=== PATIENT | male | born 1945 | race Caucasian/White ===

== ENCOUNTER → 2022-08-10 09:18 | Outpatient (BNVA) | payer OTHER, SELFPAY | PROVIDERS: PCP Internal Medicine; Visit Provider Urology | DX: N40.1 Benign prostatic hyperplasia with lower urinary tract symptoms (principal); R39.11 Hesitancy of micturition; R35.1 Nocturia | CPT/HCPCS: 51798; 99202 ==

== ENCOUNTER 2022-09-05 14:07 | Outpatient (REF) | payer OTHER, SELFPAY ==
--- NOTE | ~2022-09-05 | US_ITS ---
EXAMINATION: US PELVIS LIMITED (BLADDER) CLINICAL INFORMATION: Benign prostatic hyperplasia without lower urinary tract symptoms. COMPARISON: Renal ultrasound 12/26/2016. TECHNIQUE: Real-time imaging of the bladder. FINDINGS: BLADDER: Well distended and normal. Bilateral ureteral jets are demonstrated. Prevoid bladder volume is 440 mL. Postvoid bladder volume is 354 mL. ADDITIONAL FINDINGS: Prostate dimensions are 4.1 x 3.3 x 3.7 cm (volume 25.9 mL). Again, the prostate gland is lobulated and extends into the bladder base. US/US bladder IMPRESSION: There is a persistent increased postvoid residual volume. As well, a prostatic impression upon the bladder base is redemonstrated.
== END 2022-09-05 14:08 | disposition home or self-care (01) ==
LOC: HO.US 14:07
PROVIDERS: PCP General Practice; Visit Provider Urology
DX: N40.0 Benign prostatic hyperplasia without lower urinary tract symptoms (principal)
CPT/HCPCS: 76857

== ENCOUNTER → 2022-09-13 10:58 | Outpatient (BNVA) | payer OTHER, SELFPAY | PROVIDERS: PCP General Practice; Visit Provider Urology | DX: N40.1 Benign prostatic hyperplasia with lower urinary tract symptoms (principal); R39.11 Hesitancy of micturition; R35.1 Nocturia; N43.3 Hydrocele, unspecified | CPT/HCPCS: 52000; 99212 ==

== ENCOUNTER 2022-12-08 14:09 | Outpatient (AMB) | payer OTHER, SELFPAY ==
--- NOTE | 2022-12-08 14:10 | A.OFFVIS_ITS ---
Intake Intake Visit Reasons: H&P (greenlight 12/18) Intake Note: Patient is present for Telephone Follow Up h&p update Urology Med: None Antibiotic Allergy: Levoflaxcin Blood Thinner: none Pharmacy: [facility] Allergies atorvastatin Allergy (Mild, Verified 12/08/22 14:12) Unknown gabapentin Allergy (Mild, Verified 12/08/22 14:12) Unknown levofloxacin Allergy (Unknown, Verified 12/08/22 14:12) Unknown HPI HPI Comments History of Present Illness Details Lev is a pleasant male. He is a patient of Dr. Zavala. He seen for the following urologic conditions. - lower urinary tract symptoms - erectile dysfunction - hydrocele Bladder ultrasound incomplete emptying with 30 g prostate Office cystoscopy - enlarged median lobe, left hydrocele Discussed laser procedure on prostate and left hydrocelectomy Lower urinary tract symptoms Prior left hydrocele Longstanding symptoms of weakness of stream with hesitancy that have been progressive Current therapy with terazosin 5 mg and finasteride 5 mg Erectile dysfunction in setting of diabetes Longstanding Progressive Prior responsiveness to a sildenafil 100 mg [facility] Medical History BPH (benign prostatic hyperplasia) Diabetes mellitus, type II HTN (hypertension) PTSD (post-traumatic stress disorder) Review of Systems Const All systems reviewed & are unremarkable except as noted in HPI and below Reports no additional complaints Resp Reports no additional complaints GI Reports no additional complaints Reports as per HPI Musc Reports no additional complaints Physical Exam Telemedicine evaluation Appropriate responses Regular breathing rate and rhythm HEENT Head: Yes normal to inspection Ears: hearing grossly normal bilaterally Eyes General: appearance normal, both eyes and all related structures Neck Neck: Yes normal visual inspection Chest Chest palpation & inspection: normal inspection of the chest Resp Effort & Inspection: normal respiratory effort and able to speak in complete sentences Assessment & Plan Assessment & Plan (1) Hydrocele in adult: Code(s): N43.3 - Hydrocele, unspecified (2) BPH (benign prostatic hyperplasia): Code(s): N40.0 - Benign prostatic hyperplasia without lower urinary tract symptoms Plan Planned surgery upcoming GreenLight laser prostate Left hydrocelectomy Patient Instructions: Imaging studies, laboratory and physical exam results were discussed and reviewed in detail. No major barriers to patient understanding were identified. An opportunity to ask questions regarding the treatment plan was provided. All questions were answered. The patient expressed understanding and agreement with the above treatment plan. The patient is aware they should contact our office by phone for worsening of their current condition or the appearance of new urologic symptoms. Compliance is encouraged with any medications and followup testing that is ordered. It is a privilege to participate in the urologic care of your patient. If you have any questions or concerns regarding treatment for the above conditions, or other urologic issues, please do not hesitate to contact me. The office telephone contact is [phone]. This note is constructed using voice recognition software. While every effort has been made to ensure accuracy insole channeler errors may have been included. Yours sincerely, Dr Farooq Coello MD, [facility] - Urology Providers of Expert, Compassionate Care for the Genitourinary System Telehealth Telehealth Location of provider rendering services: practice address Location of patient: address on file Patient Identification confirmed using: Name, : Yes Telehealth method: video Patient verbally consented to treatment: Yes Patient verbally consented to billing insurance company: Yes Patient informed of any privacy concerns related to visit: Yes Coding Level of Care Code Tele Est Pt Level 3 (04128) Diagnoses Hydrocele in adult N43.3 BPH (benign prostatic hyperplasia) N40.0
== END 2022-12-08 15:54 | disposition home or self-care (01) ==
LOC: HO.HUSH 14:09
PROVIDERS: PCP General Practice; Visit Provider Urology
DX: N43.3 Hydrocele, unspecified (principal); N40.0 Benign prostatic hyperplasia without lower urinary tract symptoms
CPT/HCPCS: 99213

== ENCOUNTER → 2022-12-08 14:09 | Outpatient (BNVA) | payer OTHER, SELFPAY | PROVIDERS: PCP General Practice; Visit Provider Urology ==

== ENCOUNTER 2022-12-18 07:31 | Day surgery (SDC) | payer OTHER, SELFPAY ==
[2022-12-14 10:20] VITALS: BMI 27.0
--- NOTE | 2022-12-15 12:36 | P.CONAN_ITS ---
Documented by User: Melissa Lara NP 12/15/22 12:38 HPI - Anesthesia Eval Consult details Narrative: 77yo M for Laser Ablation Prostate w/Green Light, Left Hydrocele Repair PMFSH Active Problems Active Problems: All Active Problems (Updated 12/14/22 @ 09:49 by Sindy Selby RN) Nocturia more than twice per night (Acute) Urinary hesitancy due to benign prostatic hyperplasia (Acute) Hydrocele in adult (Acute) BPH (benign prostatic hyperplasia) (Acute) Past Medical History Medical History BPH (benign prostatic hyperplasia) Diabetes mellitus, type II Elevated cholesterol Glaucoma HTN (hypertension) Mild intermittent asthma PTSD (post-traumatic stress disorder) Skin cancer Spinal stenosis Surgical History Surgical History H/O colonoscopy History of lumbar laminectomy History of surgery Hx of cholecystectomy Hx of tonsillectomy Social History Social History Are you a primary hearing healthcare practitioner to a significant other at home: No Do you presently have visiting nurse or other home services: No Patient Tobacco Use Status: Former Tobacco user Quit Date: age 45 Tobacco use type: Cigarette Use of substances other than those prescribed or required for medical reasons: No Have you been hit, kicked, punched, or otherwise hurt by someone within the past year? If so, by whom?: No Are you DNR?: No Advance Directives: No Advance Directives Information Provided: Yes (brochure mailed) Advance Directives on File: No Recently lost weight without trying: No Eating poorly because of decreased appetite: No Nutrition Risks: Surgical patient >75years Poor oral hygiene: No Meds Allergies Allergy/AdvReac Type Severity Reaction Status Date / Time levofloxacin Allergy Intermediate Hives Verified 12/14/22 10:19 gabapentin AdvReac Severe niesha Verified 12/14/22 10:19 atorvastatin AdvReac Intermediate leg cramps Verified 12/14/22 10:19 Home Medications Medication Instructions Recorded Confirmed Last Taken Type albuterol sulfate 90 mcg/actuation 1 puff inhalation Q4H PRN Wheezing 09/13/22 12/14/22 Unknown History aerosol inhaler hydrochlorothiazide 25 mg tablet 25 mg PO DAILY 09/13/22 12/14/22 Unknown History lisinopril 20 mg tablet 20 mg PO DAILY 09/13/22 12/14/22 Unknown History rosuvastatin 20 mg tablet 20 mg PO BEDTIME 09/13/22 12/14/22 Unknown History cyanocobalamin (vitamin B-12) 500 500 mcg PO DAILY 12/14/22 12/14/22 Unknown History mcg tablet finasteride 5 mg tablet 5 mg PO DAILY 12/14/22 12/14/22 Unknown History fluticasone propionate 50 1 spray intranasal DAILY 12/14/22 12/14/22 Unknown History mcg/actuation nasal spray,suspension insulin aspart U-100 100 unit/mL 4 - 6 unit subcut TIDAC 12/14/22 12/14/22 Unknown History subcutaneous solution insulin glargine 100 unit/mL 13 unit subcut BEDTIME 12/14/22 12/14/22 Unknown History subcutaneous solution (Lantus U-100 Insulin) metformin 500 mg tablet 500 mg PO BID 12/14/22 12/14/22 Unknown History mometasone 110 mcg/actuation(30 2 inh inhalation DAILY 12/14/22 12/14/22 Unknown History doses) breath activated powder inhaler nifedipine 30 mg tablet,extended 30 mg PO DAILY 12/14/22 12/14/22 Unknown History release terazosin 10 mg capsule 10 mg PO BEDTIME 12/14/22 12/14/22 Unknown History Exam Exam Date and Time: December 15, 2022 1236 Height,Weight and Vital Signs: Height 6 ft 1 in Weight 92.986 kg Assessment and Plan Assessment Anesthesia Assessment: Chart Reviewed Documented by User: Lorelei Herrera MD 12/18/22 08:42 PMFSH Past Medical History Medical History BPH (benign prostatic hyperplasia) Diabetes mellitus, type II Elevated cholesterol Glaucoma HTN (hypertension) Mild intermittent asthma PTSD (post-traumatic stress disorder) Skin cancer Spinal stenosis Family History Family history of problems with anesthesia: No Surgical History Surgical History H/O colonoscopy History of lumbar laminectomy History of surgery Hx of cholecystectomy Hx of tonsillectomy History of Problems with Anesthesia: No Social History Social History Are you a primary hearing healthcare practitioner to a significant other at home: No Do you presently have visiting nurse or other home services: No Patient Tobacco Use Status: Former Tobacco user Quit Date: age 45 Tobacco use type: Cigarette Use of substances other than those prescribed or required for medical reasons: No Have you been hit, kicked, punched, or otherwise hurt by someone within the past year? If so, by whom?: No Are you DNR?: No Advance Directives: No Advance Directives Information Provided: Yes (brochure mailed) Advance Directives on File: No Recently lost weight without trying: No Eating poorly because of decreased appetite: No Nutrition Risks: Surgical patient >75years Poor oral hygiene: No Meds Allergies Allergy/AdvReac Type Severity Reaction Status Date / Time levofloxacin Allergy Intermediate Hives Verified 12/14/22 10:19 gabapentin AdvReac Severe niesha Verified 12/14/22 10:19 atorvastatin AdvReac Intermediate leg cramps Verified 12/14/22 10:19 Home Medications Medication Instructions Recorded Confirmed Last Taken Type albuterol sulfate 90 mcg/actuation 1 puff inhalation Q4H PRN Wheezing 09/13/22 12/14/22 Unknown History aerosol inhaler hydrochlorothiazide 25 mg tablet 25 mg PO DAILY 09/13/22 12/14/22 Unknown History lisinopril 20 mg tablet 20 mg PO DAILY 09/13/22 12/14/22 Unknown History rosuvastatin 20 mg tablet 20 mg PO BEDTIME 09/13/22 12/14/22 Unknown History cyanocobalamin (vitamin B-12) 500 500 mcg PO DAILY 12/14/22 12/14/22 Unknown History mcg tablet finasteride 5 mg tablet 5 mg PO DAILY 12/14/22 12/14/22 Unknown History fluticasone propionate 50 1 spray intranasal DAILY 12/14/22 12/14/22 Unknown History mcg/actuation nasal spray,suspension insulin aspart U-100 100 unit/mL 4 - 6 unit subcut TIDAC 12/14/22 12/14/22 Unknown History subcutaneous solution insulin glargine 100 unit/mL 13 unit subcut BEDTIME 12/14/22 12/14/22 Unknown History subcutaneous solution (Lantus U-100 Insulin) metformin 500 mg tablet 500 mg PO BID 12/14/22 12/14/22 Unknown History mometasone 110 mcg/actuation(30 2 inh inhalation DAILY 12/14/22 12/14/22 Unknown History doses) breath activated powder inhaler nifedipine 30 mg tablet,extended 30 mg PO DAILY 12/14/22 12/14/22 Unknown History release terazosin 10 mg capsule 10 mg PO BEDTIME 12/14/22 12/14/22 Unknown History Exam Airway Mallampati Class: II TM Dist: >3cm Neck ROM: Limited Heart: rrr Lungs: cta Assessment and Plan Assessment Anesthesia Assessment: Anesthesia Plan Discussed and Smoking Cess. Discussed (quit 30 yrs ago) Final Anesthetic Review Family History of Problems with Anesthesia: No History of Problems with Anesthesia: No NPO: Yes ASA Class: III Final Preanesthetic Review: No Changes in Pt Med Stat, Meds/Allgs Chart Reviewed, Consent Obtained/Reviewed and Anes Risks/Benef Reviewed Patient Risk: Intermediate Procedure Risk: Low Anesthetic Plan Anesthetic Plan: GA (took half dose lantis last night did not take metformin ) Disposition: Standard PACU
[2022-12-18] VITALS (8 sets, daily range): BP systolic 118–131; BP diastolic 66–76; PULSE 59–668; RESP 16–17; TEMP 35.8–36.1; O2SAT 96–98; BMI 27.0
[2022-12-18 08:24] LABS: Glucose, Whole Blood 172 mg/dL (60-115)
--- NOTE | 2022-12-18 09:00 | MHC.SHP ---
Pre-Procedural Eval Section A Date of Service: 12/18/22 The patient is an INPATIENT: No Changes since office visit: No Cold of Flu in the past 2 weeks, No New Medical Problems, No Changes in Medication and No Patient answered all questions The History & Physical has been completed within 30 days and I have reviewed it.: Yes Section B Chief Complaint: Benign prostatic hyperplasia,hydrocele Allergies: Allergies Allergy/AdvReac Type Severity Reaction Status Date / Time levofloxacin Allergy Intermediate Hives Verified 12/14/22 10:19 gabapentin AdvReac Severe niesha Verified 12/14/22 10:19 atorvastatin AdvReac Intermediate leg cramps Verified 12/14/22 10:19 Review of Systems Sugical H&P ROS: Negative: Constitution, Cardiovascular, Respiratory, Neurological, Psychiatric, Hem-Onc, Allergic/Immunologic, Gastrointestinal, Genitourinary, Musculoskeletal, Integumentary, Endocrine and Eyes/Ears/Nose/Throat Exam Surgical H&P Exam: Normal: HEENT, Normal: Heart, Normal: Lungs, Normal: Extremities, Normal: Abdomen, Normal: Skin and Normal: Neurological Plan Diagnosis/Plan: Unchanged ( Left-sided hydrocelectomy, GreenLight laser prostate) I have reviewed the history and physical and performed a pertinent physical examination on my patient. No changes have occurred unless specified. Time Spent With Patient Time: Total time managing care of this patient today ____ minutes.
--- NOTE | 2022-12-18 11:13 | W.PM.OPN ---
Operative Note Operative Note Date of Service: 12/18/22 Narrative: PreOperative Diagnosis: Bladder outlet obstruction and left hydrocele Post Operative Diagnosis: Bladder outlet obstruction and left hydrocele Procedure: 1) GreenLight Laser Enucleation of the prostate 2) left hydrocelectomy Surgeon: Dr Farooq Coello Anesthesia: General History of bladder outlet obstruction. Treated with alpha-deacon and other medications. Still with symptoms. On cystoscopy in office has trilobar prostate. Recommendation for prostate procedure with laser enucleation of prostate. Risks and benefits have been discussed. Focus was placed on development of retrograde ejaculation which is a normal part of this procedure. Procedure: After informed consent was verified the patient was brought to the operating room and placed in a supine position. Anesthesia was administered per protocol. Patient was placed in modified dorsal lithotomy position and prepped and draped in a sterile fashion. Safety pause time-out was confirmed. Antibiotics have been given. A Twenty-four Gibraltarian laser cystoscope was inserted per urethra. No abnormalities were found of the anterior and bulbar urethra. The bladder was examined and both ureteric orifices were seen in their normal positions away from the area of interest. Using a GreenLight laser with settings of 80 w incisions were made at the 5 and 7 o'clock position. The incisions were taken down from the bladder neck down to the level of the veru. These were gradually deepened in order to define the lateral aspects of the median lobe area. Once clearly defined they will also extended in the lateral directions in order to create a deep groove. The median lobe was then ablated and enucleated tissue released into the bladder with the laser power increased to 120 W. Once the median lobe area had been cleared attention was directed to the lateral lobes. Starting with the patient's left lateral lobe. First the 05:00 o'clock groove was further developed. This was moved in the lateral direction to undermine the tissue on the lateral side running from the bladder neck to the prostate apex. Focus was then placed on the laser at the 1 o'clock position to developing a secondary groove down to the level of bladder fibers. The creation of a second deep groove defined a segment of intervening tissue similar to a slice of orange. At the apex of the prostate the 2 grooves were linked the us releasing the intervening tissue. This tissue was then removed with a combination of enucleation and ablation working from the apex toward the bladder neck. A similar procedure was repeated on the patient's right-hand side. The only differences being the position of the lateral groove at he 7 'oclock positioin and the secondary groove at the 11 o'clock position, Otherwise the procedure was developed in a mirror fashion. After the majority of tissue had been debulked remnant tissue was ablated with the side fire laser and the curve of the prostate followed up each side wall clearly defining the anterior remnant strip that remained between the 11 and 1 o'clock positions. There was difficulty with laser fiber and machine communication When this was had been completed debris and pieces of prostate were removed from the bladder with irrigation. Both ureteric orifices were reviewed again in shown to be patent in away from any areas of energy damage. The apical area was reviewed in any stray ooze was controlled. A 22 [place] 30 cc balloon Castaneda catheter was placed over a stylet into the bladder. Clear efflux was obtained upopn irrigation with a Med piston syringe. 30 cc was placed in the balloon and gentle traction was placed. A snap was used to hold tension on the catheter to control bleeding during patient moved and transported. A drainage bag was placed. Attention was directed to the left hydrocele Local anesthetic was infiltrated under the skin in a horizontal fashion on the scrotum. Skin incision was made using a blade through the subdermal layer. The tunica around the testicle was elevated and dissected free from surrounding tissue. The avascular plane around the tunica was entered and using a wet sponge blunt dissection was performed. Any small bleeding perforators were cauterized. The testicle was delivered out of the scrotum and opened in a longitudinal fashion.. Fluid was removed. The testicle sac was inverted. Excess sac was dissected. A bottle neck procedure was performed to approximate edges using a running 3-0 Vicryl suture. Skin edges of the tunica were cauterized carefully in order to try to minimize postprocedure hematoma. Small accessory appendices were removed from the head of epididymis. The testicle with resected sac was placed back into a dependent portion of the scrotum. Overlying skin fascia layer was closed with a running 3-0 Vicryl suture. Skin was closed with interrupted 4-0 chromic sutures. Soft fluff sponges were placed with mesh pants as dressing. Local anesthetic was placed in inguinal cord for post procedure pain relief. The patient tolerated the procedure well, he was extubated in the operating and transferred in a stable condition to the recovery area. Pathology: - Prostate tissue - hydrocele sac Drains: Castaneda catheter
== END 2022-12-18 12:47 | disposition home or self-care (01) ==
PROVIDERS: PCP General Practice; Visit Provider Urology
PROC: (CPT 52648; principal; 2022-12-18 09:10)
PROC: (CPT 55060; 2022-12-18 09:10)
DX: N40.1 Benign prostatic hyperplasia with lower urinary tract symptoms (principal); N32.0 Bladder-neck obstruction; N43.3 Hydrocele, unspecified; R39.12 Poor urinary stream; N52.9 Male erectile dysfunction, unspecified; I10 Essential (primary) hypertension; E78.5 Hyperlipidemia, unspecified; E11.9 Type 2 diabetes mellitus without complications; F43.10 Post-traumatic stress disorder, unspecified; J45.20 Mild intermittent asthma, uncomplicated; E66.3 Overweight; Z79.4 Long term (current) use of insulin; Z79.51 Long term (current) use of inhaled steroids; Z79.899 Other long term (current) drug therapy; Z88.8 Allergy status to other drugs, medicaments and biological substances; Z85.828 Personal history of other malignant neoplasm of skin; Z88.1 Allergy status to other antibiotic agents
CPT/HCPCS: 52649; 55040; 82947; 88302; 88305; J0131; J0690; J2795; J3010

== ENCOUNTER → 2022-12-18 07:31 | Outpatient (BNV) | payer OTHER, SELFPAY | PROVIDERS: PCP General Practice; Visit Provider Urology | DX: N43.3 Hydrocele, unspecified (principal); N40.0 Benign prostatic hyperplasia without lower urinary tract symptoms | CPT/HCPCS: 52649; 55040 ==

== ENCOUNTER → 2022-12-21 09:25 | Outpatient (BNVA) | payer OTHER, SELFPAY | PROVIDERS: PCP General Practice; Visit Provider Urology | DX: N40.0 Benign prostatic hyperplasia without lower urinary tract symptoms (principal) | CPT/HCPCS: 51700; 51798 ==

== ENCOUNTER 2023-02-01 10:41 | Outpatient (AMB) | payer OTHER, SELFPAY ==
--- NOTE | 2023-02-01 11:16 | MHC.OFFVIS ---
Intake Intake Visit Reasons: 6 wk (green[facility]) Intake Note: Patient is Present for Follow Up [facility] Medication:Finasteride, Terazosin Antibiotic Allergies: Levofloxacin Blood Thinners: None Pharmacy: [facility] PVR: 153ml Allergies levofloxacin Allergy (Intermediate, Verified 02/01/23 11:18) Hives gabapentin Adverse Reaction (Severe, Verified 02/01/23 11:18) niesha atorvastatin Adverse Reaction (Intermediate, Verified 02/01/23 11:18) leg cramps HPI HPI Comments History of Present Illness Details Lev is a pleasant male. He is a patient of Dr. Zavala. He seen for the following urologic conditions. - lower urinary tract symptoms - erectile dysfunction - hydrocele Six week follow-up [facility] laser prostate with left hydrocele PVR 153 - not emptying completely Different improved flow May stop terazosin 6 month follow-up PVR Lower urinary tract symptoms Prior left hydrocele Longstanding symptoms of weakness of stream with hesitancy that have been progressive Bladder ultrasound incomplete emptying with 30 g prostate Current therapy with terazosin 5 mg and finasteride 5 mg Erectile dysfunction in setting of diabetes Longstanding Progressive Prior responsiveness to a sildenafil 100 mg PFSH Medical History Mild intermittent asthma Glaucoma Spinal stenosis Skin cancer Elevated cholesterol Diabetes mellitus, type II PTSD (post-traumatic stress disorder) HTN (hypertension) BPH (benign prostatic hyperplasia) Surgical History Hx of tonsillectomy History of surgery History of lumbar laminectomy H/O colonoscopy Hx of cholecystectomy Social History Are you a primary child daycare worker to a significant other at home: No Do you presently have visiting nurse or other home services: No Patient Tobacco Use Status: Former Tobacco user Quit Date: age 45 Tobacco use type: Cigarette Review of Systems Const Denies chills and Denies fever(s) Card Reports no additional complaints and Denies syncope Resp Denies cough GI Denies abdominal pain and Denies heartburn Reports as per HPI and Denies change in libido Neuro Denies syncope Psych Denies change in libido Endo Denies change in libido Physical Exam Const General: cooperative, healthy appearing, comfortable and no acute distress Orientation/consciousness: patient oriented x3 HEENT Face and sinus: Yes normal facial exam Mouth: moist mucous membranes Neck Neck: Yes normal visual inspection, Yes full ROM and Yes trachea midline Chest Chest palpation & inspection: normal inspection of the chest Resp Effort & Inspection: normal respiratory effort, able to speak in complete sentences and no respiratory distress GI Inspection: Yes normal to inspection Back/Spine/Pelvis Cervical Spine: normal cervical lordosis Thoracic/Lumbar Spine: thoracic and lumbar spine normal to inspection Skin General skin exam: no rashes or lesions noted Neuro General: patient oriented x3, gait normal, tone normal and moves all extremities Extrem General: Yes normal to inspection and Yes capillary refill normal Office Procedures Post Void Residual Post Residual Void Post Void Residual (PVR): 153 [id number] Void Residual by ultrasound Results AMB Urinalysis, Automated UA Leukoctes 15 Yosef/uL Last Edit by Amalia Burk [facility] on 02/01/23 11:27 UA Nitrite Negative Last Edit by Amalia Burk [facility] on 02/01/23 11:27 UA Urobilinogen 0.2 mg/dL Last Edit by Amalia Burk [facility] on 02/01/23 11:27 UA Protein 0 mg/dL Last Edit by Amalia Burk [facility] on 02/01/23 11:27 UA pH 6.5 Last Edit by Amalia Burk [facility] on 02/01/23 11:27 UA Blood 0 Juan David/uL Last Edit by Amalia Burk [facility] on 02/01/23 11:27 UA Specific [place] 1.010 Last Edit by Amalia Burk [facility] on 02/01/23 11:27 UA Ketone Negative Last Edit by Amalia Burk [facility] on 02/01/23 11:27 UA Bilirubin 0 mg/dL Last Edit by Amalia Burk [facility] on 02/01/23 11:27 UA Glucose 0 mg/dL Last Edit by Amalia Burk [facility] on 02/01/23 11:27 Assessment & Plan Assessment & Plan (1) Urinary hesitancy due to benign prostatic hyperplasia: Code(s): N40.1 - Benign prostatic hyperplasia with lower urinary tract symptoms; R39.11 - Hesitancy of micturition (2) Nocturia more than twice per night: Code(s): R35.1 - Nocturia (3) BPH (benign prostatic hyperplasia): Code(s): N40.0 - Benign prostatic hyperplasia without lower urinary tract symptoms Plan Six month follow-up Orders: Orders AMB Urinalysis Automated Today Z13.9 - Encounter for screening, unspecified AMB Post Void Residual by ultrasound Today N40.0 - Benign prostatic hyperplasia without lower urinary tract symptoms Prostate Specific Antigen 6 Months N40.0 - Benign prostatic hyperplasia without lower urinary tract symptoms Patient Instructions: Imaging studies, laboratory and physical exam results were discussed and reviewed in detail. No major barriers to patient understanding were identified. An opportunity to ask questions regarding the treatment plan was provided. All questions were answered. The patient expressed understanding and agreement with the above treatment plan. The patient is aware they should contact our office by phone for worsening of their current condition or the appearance of new urologic symptoms. Compliance is encouraged with any medications and followup testing that is ordered. It is a privilege to participate in the urologic care of your patient. If you have any questions or concerns regarding treatment for the above conditions, or other urologic issues, please do not hesitate to contact me. The office telephone contact is [phone]. This note is constructed using voice recognition software. While every effort has been made to ensure accuracy vulcanizer errors may have been included. Yours sincerely, Dr Farooq Coello MD, [facility] - Urology Providers of Expert, Compassionate Care for the Genitourinary System Coding Level of Care Code Est Pt Level 3 (71114) Diagnoses Urinary hesitancy due to benign prostatic hyperplasia N40.1; R39.11 Nocturia more than twice per night R35.1 BPH (benign prostatic hyperplasia) N40.0 CPT Codes Post Residual Void - PVR CPT Code: 17593-Ylso Void Residual by ultrasound ([id number])
== END 2023-02-01 11:38 | disposition home or self-care (01) ==
PROVIDERS: PCP General Practice; Visit Provider Urology
DX: N40.1 Benign prostatic hyperplasia with lower urinary tract symptoms (principal); R39.11 Hesitancy of micturition; R35.1 Nocturia; N40.0 Benign prostatic hyperplasia without lower urinary tract symptoms; Z13.9 Encounter for screening, unspecified
CPT/HCPCS: 99024

== ENCOUNTER → 2023-02-01 10:41 | Outpatient (BNVA) | payer OTHER, SELFPAY | PROVIDERS: PCP General Practice; Visit Provider Urology | DX: N40.1 Benign prostatic hyperplasia with lower urinary tract symptoms (principal); R39.11 Hesitancy of micturition; R35.1 Nocturia | CPT/HCPCS: 51798; 81003; 99212 ==

== ENCOUNTER 2023-08-07 09:54 | Outpatient (AMB) | payer OTHER, SELFPAY ==
--- NOTE | 2023-08-07 09:59 | MHC.OFFVIS ---
Intake Intake Visit Reasons: 6M PSA/PVR(psa?)Confirmed Intake Note: Patient is Present for Follow Up Urology Medication: Finasteride, Terazosin Antibiotic Allergies: Levofloxacin Blood Thinners: None [facility]acy: [facility] Patient was to have [facility] done [facility], Had labs done for Endocrinology but when reviewed NO psa was drawn PVR: 51 Allergies levofloxacin Allergy (Intermediate, Verified 08/07/23 10:06) Hives gabapentin Adverse Reaction (Severe, Verified 08/07/23 10:06) niesha atorvastatin Adverse Reaction (Intermediate, Verified 08/07/23 10:06) leg cramps HPI HPI Comments History of Present Illness Details Lev is a pleasant male. He is a patient of Dr. Zavala. He seen for the following urologic conditions. - lower urinary tract symptoms - erectile dysfunction - hydrocele Six-month follow-up PVR 51 cc Significant improvement Off terazosin Lower urinary tract symptoms Prior left hydrocele Longstanding symptoms of weakness of stream with hesitancy that have been progressive Bladder ultrasound incomplete emptying with 30 g prostate Current therapy with terazosin 5 mg and finasteride 5 mg Erectile dysfunction in setting of diabetes Longstanding Progressive Prior responsiveness to a sildenafil 100 mg PFSH Medical History Mild intermittent asthma Glaucoma Spinal stenosis Skin cancer Elevated cholesterol Diabetes mellitus, type II PTSD (post-traumatic stress disorder) HTN (hypertension) BPH (benign prostatic hyperplasia) Surgical History Hx of tonsillectomy History of surgery History of lumbar laminectomy H/O colonoscopy Hx of cholecystectomy Social History Are you a primary toddler caregiver to a significant other at home: No Do you presently have visiting nurse or other home services: No Patient Tobacco Use Status: Former Tobacco user Quit Date: age 45 Tobacco use type: Cigarette Review of Systems Const Denies chills and Denies fever(s) Card Reports no additional complaints and Denies syncope Resp Denies cough GI Denies abdominal pain and Denies heartburn Reports as per HPI and Denies change in libido Neuro Denies syncope Psych Denies change in libido Endo Denies change in libido Physical Exam Const General: cooperative, healthy appearing, comfortable and no acute distress Orientation/consciousness: patient oriented x3 HEENT Face and sinus: Yes normal facial exam Mouth: moist mucous membranes Neck Neck: Yes normal visual inspection, Yes full ROM and Yes trachea midline Chest Chest palpation & inspection: normal inspection of the chest Resp Effort & Inspection: normal respiratory effort, able to speak in complete sentences and no respiratory distress GI Inspection: Yes normal to inspection Back/Spine/Pelvis Cervical Spine: normal cervical lordosis Thoracic/Lumbar Spine: thoracic and lumbar spine normal to inspection Skin General skin exam: no rashes or lesions noted Neuro General: patient oriented x3, gait normal, tone normal and moves all extremities Extrem General: Yes normal to inspection and Yes capillary refill normal Office Procedures Post Void Residual Post Residual Void Post Void Residual (PVR): 51 [id number] Void Residual by ultrasound Assessment & Plan Assessment & Plan (1) Nocturia more than twice per night: Code(s): R35.1 - Nocturia (2) BPH (benign prostatic hyperplasia): Code(s): N40.0 - Benign prostatic hyperplasia without lower urinary tract symptoms Plan Twelve month follow-up PVR Orders: Orders AMB Post Void Residual by ultrasound Today N40.0 - Benign prostatic hyperplasia without lower urinary tract symptoms Patient Instructions: Imaging studies, laboratory and physical exam results were discussed and reviewed in detail. No major barriers to patient understanding were identified. An opportunity to ask questions regarding the treatment plan was provided. All questions were answered. The patient expressed understanding and agreement with the above treatment plan. The patient is aware they should contact our office by phone for worsening of their current condition or the appearance of new urologic symptoms. Compliance is encouraged with any medications and followup testing that is ordered. It is a privilege to participate in the urologic care of your patient. If you have any questions or concerns regarding treatment for the above conditions, or other urologic issues, please do not hesitate to contact me. The office telephone contact is [phone]. This note is constructed using voice recognition software. While every effort has been made to ensure accuracy credit card interviewer errors may have been included. Yours sincerely, Dr Farooq Coello MD, [facility] - Urology Providers of Expert, Compassionate Care for the Genitourinary System Coding Level of Care Code Est Pt Level 4 (12085) Diagnoses Nocturia more than twice per night R35.1 BPH (benign prostatic hyperplasia) N40.0 CPT Codes Post Residual Void - PVR CPT Code: 98128-Crnm Void Residual by ultrasound ([id number])
== END 2023-08-07 10:58 | disposition home or self-care (01) ==
PROVIDERS: PCP General Practice; Visit Provider Urology
DX: R35.1 Nocturia (principal); N40.0 Benign prostatic hyperplasia without lower urinary tract symptoms
CPT/HCPCS: 99213

== ENCOUNTER → 2023-08-07 09:54 | Outpatient (BNVA) | payer OTHER, SELFPAY | PROVIDERS: PCP General Practice; Visit Provider Urology | DX: N40.1 Benign prostatic hyperplasia with lower urinary tract symptoms (principal); R35.1 Nocturia | CPT/HCPCS: 51798; 99212 ==

== ENCOUNTER 2024-08-05 09:32 | Outpatient (AMB) | payer OTHER, SELFPAY ==
--- NOTE | 2024-08-05 09:41 | A.OFFVIS_ITS ---
Intake Visit Reasons: 1y/PVR Intake Note: Patient is Present for 1Y Follow Up/PVR Urology Medication: Finasteride, Terazosin, VITAMIN B12 Antibiotic Allergies: Levofloxacin Blood Thinners: None PVR: 51ML'S TODAY'S PVR:249ML'S Dental Detail Representative Required: No Allergies levofloxacin Allergy (Intermediate, Verified 08/05/24 09:43) Hives gabapentin Adverse Reaction (Severe, Verified 08/05/24 09:43) niesha atorvastatin Adverse Reaction (Intermediate, Verified 08/05/24 09:43) leg cramps HPI Comments Details: Lev is a pleasant male. He is a patient of Dr. Zavala. He seen for the following urologic conditions. - lower urinary tract symptoms - erectile dysfunction - hydrocele Yearly follow-up High PVR in office however did not attempt to empty Background diabetes - insulin-dependent Switch to evening terazosin Six-month follow-up office Lower urinary tract symptoms Prior left hydrocele Longstanding symptoms of weakness of stream with hesitancy that have been progressive Bladder ultrasound incomplete emptying with 30 g prostate Current therapy with terazosin 5 mg and finasteride 5 mg Erectile dysfunction in setting of diabetes Longstanding Progressive Prior responsiveness to a sildenafil 100 mg PFSH Medical History Mild intermittent asthma Glaucoma Spinal stenosis Skin cancer Elevated cholesterol Diabetes mellitus, type II PTSD (post-traumatic stress disorder) HTN (hypertension) BPH (benign prostatic hyperplasia) Surgical History Hx of tonsillectomy History of surgery History of lumbar laminectomy H/O colonoscopy Hx of cholecystectomy Social History Are you a primary college and career counselor to a significant other at home: No Do you presently have visiting nurse or other home services: No Patient Tobacco Use Status: Former Tobacco user Tobacco use type: Cigarette Review of Systems Const Denies chills and Denies fever(s) Card Reports no additional complaints and Denies syncope Resp Denies cough GI Denies abdominal pain and Denies heartburn Reports as per HPI and Denies change in libido Neuro Denies syncope Psych Denies change in libido Endo Denies change in libido Physical Exam Const General: cooperative, healthy appearing, comfortable and no acute distress Orientation/consciousness: patient oriented x3 HEENT Face and sinus: Yes normal facial exam Mouth: moist mucous membranes Neck Neck: Yes normal visual inspection, Yes full ROM and Yes trachea midline Chest Chest palpation & inspection: normal inspection of the chest Resp Effort & Inspection: normal respiratory effort, able to speak in complete sentences and no respiratory distress GI Inspection: Yes normal to inspection Back/Spine/Pelvis Cervical Spine: normal cervical lordosis Thoracic/Lumbar Spine: thoracic and lumbar spine normal to inspection Skin General skin exam: no rashes or lesions noted Neuro General: patient oriented x3, gait normal, tone normal and moves all extremities Extrem General: Yes normal to inspection and Yes capillary refill normal Office Procedures Post Void Residual Post Residual Void Post Void Residual (PVR): 249 [id number] Void Residual by ultrasound Assessment & Plan Assessment & Plan (1) Nocturia more than twice per night: Code(s): R35.1 - Nocturia Category: Medical (2) Urinary hesitancy due to benign prostatic hyperplasia: Code(s): N40.1 - Benign prostatic hyperplasia with lower urinary tract symptoms; R39.11 - Hesitancy of micturition Category: Medical Plan Six-month follow-up Patient Instructions: This note is constructed using voice recognition software. While every effort has been made to ensure accuracy assistant floor covering printer errors may have been included. Imaging studies, laboratory and physical exam results were discussed and reviewed in detail. No major barriers to patient understanding were identified. An opportunity to ask questions regarding the treatment plan was provided. All questions were answered. The patient expressed understanding and agreement with the above treatment plan. The patient is aware they should contact our office by phone for worsening of their current condition or the appearance of new urologic symptoms. Compliance is encouraged with any medications and followup testing that is ordered. It is a privilege to participate in the urologic care of your patient. If you have any questions or concerns regarding treatment for the above conditions, or other urologic issues, please do not hesitate to contact me. The office telephone contact is [phone]. Sincerely, Dr Farooq Coello MD, [facility] - Urology Compassionate Specialist Care for the Genitourinary System Coding Level of Care Code Est Pt Level 4 (87424) Complex EM visit Add On G2211 Diagnoses Nocturia more than twice per night R35.1 Urinary hesitancy due to benign prostatic hyperplasia N40.1; R39.11 CPT Codes Post Residual Void - PVR CPT Code: 18947-Arbb Void Residual by ultrasound ([id number])
--- OUTSIDE RECORDS SUMMARY | 2024-08-05 10:43 | XMS_ITS | Data Portability ---
Author Organization [facility], [facility] Address [address] [place] [address] Assessment No assessment recorded. Plan of Treatment Reminders Order Date Submit Date Provider Last Modified By Organization Details Last Modified Time Details Appointments None record ed. Lab None record ed. Referral None record ed. Procedures None record ed. Surgeries None record ed. Imaging None record ed. Medication Orders None record ed. Patient TargetsNo targets recorded. Patient InstructionsNo instructions recorded. Reason for Referral None Reported. Problems Name Problem SNOMED Code Status Onset Date Resolution Date Notes Provider Name and Address Organization Details Recorded Time Osteoarthritis of knee 089346390 Active 2023 Haseeb Camarillo PA-C [address], [place], [address], [facility] 06:45:13 Problem Notes None recorded. Procedures Surgical History Date Name Laterality Status Provider Name and Address Organization Details Recorded Time 09/12/2023 Sports Knee 4&1 completed Haseeb Camarillo PA-C [address], [place], [address], [facility] 09/12/2023 08:39:36 Imaging Results None recorded. Procedure Notes None recorded. Medical Equipment None Reported. Allergies Allergen ID Allergen Name Allergen Category Reaction Reaction Severity Criticality Documentation Date Start Date Code Code System Note Provider Name and Address Organization Details Recorded Time [id number] levofloxa domenico medicatio n facial swelling moderate Not available 09/12/20232008 38312 RxNorm Haseeb Camarillo PA-C [address], [place], [address], [facility] 4 08:27:29 Medications Name Sig Start Date Stop Date Status Note LastModified by Organization Details LastModified Time metformin 500 mg tablet active Not Available Not Available Not Available cetirizine 10 mg tablet active Not Available Not Available Not Available Glucagon Emergency Kit 1 mg solution for injection active Not Available Not Available No t Available sulfamethoxa zole 400 mg-trimethop rim 80 mg tablet TAKE 1 TABLET BY MOUTH EVERY DAY active Not Available Not Available No t Available ketotifen 0.025 % (0.035 %) eye drops PLACE 1 DROP INTO BOTH EYES 2 TIMES DAILY NEEDED FOR OTHER (ALLERGIC CONJUNCTIVI TIS). active Not Available Not Available No t Available valacyclovir 1 gram tablet TAKE 1 TABLET BY MOUTH THREE TIMES A DAY FOR 7 DAYS active Not Available Not Available N ot Available lisinopril 20 mg tablet active Not Available Not Available Not Available betamethason e, augmented 0.05 % topical cream APPLY TWICE DAILY TO AFFECTED AREA ON RIGHT LEG FOR 2 WEEKS active Not Available Not Available Not Available Lantus U-100 Insulin 100 unit/mL subcutaneous solution INJECT 14 UNITS SUBCUTANEOU SLY DAILY active Not Available Not Available No t Available Vitamin B-12 500 mcg tablet active Not Available Not Available Not Available nifedipine ER 30 mg tablet,exten ded release active Not Available Not Available Not Available tramadol 50 mg tablet TAKE 1 TABLET BY MOUTH EVERY 6 HOURS NEEDED FOR PAIN active Not Available Not Available No t Available sildenafil 100 mg tablet active Not Available Not Available Not Available triamcinolon e acetonide 0.1 % topical cream APPLY TO AFFECTED AREA TWICE A DAY NEEDED active Not Available Not Available No t Available prednisolone acetate 1 % eye drops,suspen jeannie INSTILL 1 DROP IN LEFT EYE FOUR TIMES A DAY active Not Available Not Available No t Available neomycin-peggy ymyxin-dexam eth 3.5 mg/mL-10,000 unit/mL-0.1% eye drops INSTILL 1 DROP IN BOTH EYES THREE TIMES A DAY FOR 1 WEEK THEN DAILY FOR 1 WEEK THEN STOP active Not Available Not Available No t Available glucose 4 gram chewable tablet active Not Available Not Available Not Available capsaicin 0.025 % topical cream active Not Available Not Available Not Available Novolog U-100 Insulin aspart 100 unit/mL subcutaneous solution active Not Available Not Available Not Available fluticasone propionate 50 mcg/actuatio n nasal spray,suspen jeannie active Not Available Not Available Not Available terazosin 10 mg capsule active Not Available Not Available N ot Available finasteride 5 mg tablet active Not Available Not Available Not Available amoxicillin 875 mg-potassium clavulanate 125 mg tablet TAKE 1 TABLET BY MOUTH TWICE A DAY FOR 10 DAYS active Not Available Not Available No t Available rosuvastatin 20 mg tablet active Not Available Not Available Not Available diclofenac 1 % topical gel active Not Available Not Available Not Available Asmanex Twisthaler 110 mcg/actuatio n(30 doses) breath activated inhalr active Not Available Not Available Not Available Easy Touch Alcohol Prep Pads active Not Available Not Available Not Available Remedy Phytoplex Antifungal 2 % topical powder active Not Available Not Available Not Available Tusnel-Ex 100 mg/5 mL oral liquid active Not Available Not Available Not Available Vitals Date Recorded Body weight Body mass index (BMI) Body height Provider Name and Address Organization Details Last Updated DateTime 09/12/2023 05871.25 g 26.1 kg/m2 187.96 cm Haseeb Camarillo PA-C [address], [place], [address], [place] [facility] [place] [facility] 09/12/2023 08:27:46 Social History None recorded. Functional Status None recorded. Mental Status None recorded. Family History Nothing Reported. Medical History Condition Response Diabetes Y Hypertension Y Asthma Y Cholesterol Y Past Encounters Encounter ID Performer Location Encounter Start Date Encounter Closed Date Diagnosis/Indication Diagnosis SNOMED-CT Code Diagnosis ICD10 Code Diagnosis Note [id number] [facility] [address] [place] [address] 09/12/2023 08:03:35 09/25/2023 12:47:25 Osteoarthritis of knee 509534558 M17.9 Health Concerns Section Related Observation LastModified by Organization Detai ls LastModified Time None Recorded Concern Status LastModified by Organization Details LastModified Time None Recorded Advance Directives Directive None Recorded Payers None recorded. Notes Date Note Type Note Provider Name and Address Organization Details Recorded Time 09/12/2023 text/html I am seeing the patient today under the supervision of Dr. Amaya who was available but who did not see the patient. HPI: Patient is a very pleasant 78-year-old female who presents to the office with chief complaint of knee pain. She reports symptoms are exacerbated with functional ADLs limited with prolonged weightbearing activity locates the pain both anterior and medially. She denies any injury any giving way or buckling symptoms. Conservative treatment to date has included Tylenol and anti-inflammatory medication. He reports he was evaluated at a local walk-in facility in January had x-rays and also was treated with an injection that has not helped him whole lot. PMH/PSH/MEDS/ALL/FMH /SOC HX/ ROS: All reviewed in detail per my medical intake sheet General Exam: Vitals signs as noted below, antalgic gait noted. Mental Status: Alert and oriented x3. Normal insight, affect, and grooming. DIE SIZER: Gross motor coordination is intact. No spasticity or clonus noted. Extremities: Calves are soft and nontender. Skin on lower extremities is intact. Palpable pedal pulses bilaterally. Orthopedic Exam: Left knee Restricted range of motion good anterior-posterior stability no laxity valgus or varus stressing. Exquisite medial and the lateral joint line tenderness with patellofemoral crepitus noted, 1+ effusion, 4/5 strength. X-rays report: 4 views ordered and independently reviewed taken from an outside facility show advanced medial compartment osteoarthritis, large ossicle inferior pole patella and patella tendon, lateral joint space well-preserved. Assessment: Left knee osteoarthritis Plan: The patient was thoroughly counseled today regarding their knee condition, its natural history, and the treatment options both nonoperative and operative. The patient is interested in receiving an injection with corticosteroid. Reemphasized the benefits of physical therapy, stressed the importance of compliance regarding home exercises. Potential benefits of NSAIDs and associated risk factors reviewed with the patient risk of temporary elevation of glycemic index after corticosteroid injection was discussed with the patient's diabetes. [facility] speech recognition industrial welder software was used to create portions of this document. An attempt at proofreading has been made to minimize errors. Please call for corrections Haseeb Camarillo PA-C [address] [place], [place] [phone] [facility] [address], [place], [address], [facility] 09/12/2023 08:43:46
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
== END 2024-08-05 10:34 | disposition home or self-care (01) ==
PROVIDERS: PCP General Practice; Visit Provider Urology
DX: N40.1 Benign prostatic hyperplasia with lower urinary tract symptoms (principal); R35.1 Nocturia; R39.11 Hesitancy of micturition; Z13.9 Encounter for screening, unspecified
CPT/HCPCS: 99214; G2211

== ENCOUNTER → 2024-08-05 09:32 | Outpatient (BNVA) | payer OTHER, SELFPAY | PROVIDERS: PCP General Practice; Visit Provider Urology | DX: N40.1 Benign prostatic hyperplasia with lower urinary tract symptoms (principal); R35.1 Nocturia; R39.11 Hesitancy of micturition | CPT/HCPCS: 51798; 81003; 99212 ==

== ENCOUNTER 2025-02-05 10:45 | Outpatient (AMB) | payer OTHER, SELFPAY ==
--- NOTE | 2025-02-05 10:48 | MHC.OFFVIS ---
Intake Visit Reasons: 6m/PVR Intake Note: patient presents today for: 6mo follow up urology medications: finasteride, terazosin blood thinners: none today's PVR: 285mls Securities Broker Required: No Accompanied by: Self / Same As Patient Allergies levofloxacin Allergy (Intermediate, Verified 02/05/25 10:50) Hives gabapentin Adverse Reaction (Severe, Verified 02/05/25 10:50) niesha atorvastatin Adverse Reaction (Intermediate, Verified 02/05/25 10:50) leg cramps HPI Comments Details: Lev is a pleasant male. He is a patient of Dr. Zavala. He seen for the following urologic conditions. - lower urinary tract symptoms - erectile dysfunction - hydrocele Six-month follow-up Persistent High PVR in office 250 cc Background diabetes - insulin-dependent Switch to evening terazosin Three-month follow-up office Lower urinary tract symptoms Prior left hydrocele Longstanding symptoms of weakness of stream with hesitancy that have been progressive Bladder ultrasound incomplete emptying with 30 g prostate Current therapy with terazosin 5 mg and finasteride 5 mg Cystoscopy open bladder neck with trabeculation Erectile dysfunction in setting of diabetes Longstanding Progressive Prior responsiveness to a sildenafil 100 mg PFSH Medical History Mild intermittent asthma Glaucoma Spinal stenosis Skin cancer Elevated cholesterol Diabetes mellitus, type II PTSD (post-traumatic stress disorder) HTN (hypertension) BPH (benign prostatic hyperplasia) Surgical History Hx of tonsillectomy History of surgery History of lumbar laminectomy H/O colonoscopy Hx of cholecystectomy Social History Are you a primary child care attendant to a significant other at home: No Do you presently have visiting nurse or other home services: No Patient Tobacco Use Status: Former Tobacco user Tobacco use type: Cigarette Office Procedures Post Void Residual Post Residual Void Post Void Residual (PVR): [id number] Void Residual by ultrasound Results AMB Urinalysis, Automated UA Leukoctes 0 Yosef/uL Last Edit by SUNDAY Morrell on 02/05/25 11:12 UA Nitrite Last Edit by SUNDAY Morrell on 02/05/25 11:12 UA Urobilinogen 0.2 mg/dL Last Edit by SUNDAY Morrell on 02/05/25 11:12 UA Protein 0 mg/dL Last Edit by SUNDAY Morrell on 02/05/25 11:12 UA pH 6.5 Last Edit by SUNDAY Morrell on 02/05/25 11:12 UA Blood 0 Juan David/uL Last Edit by SUNDAY Morrell on 02/05/25 11:12 UA Specific [place] 1.005 Last Edit by SUNDAY Morrell on 02/05/25 11:12 UA Ketone Negative Last Edit by SUNDAY Morrell on 02/05/25 11:12 UA Bilirubin 0 mg/dL Last Edit by SUNDAY Morrell on 02/05/25 11:12 UA Glucose 0 mg/dL Last Edit by SUNDAY Morrell on 02/05/25 11:12 Assessment & Plan Assessment & Plan Orders: Orders AMB Post Void Residual by ultrasound Today N40.0 - Benign prostatic hyperplasia without lower urinary tract symptoms AMB Urinalysis Automated Today Z13.9 - Encounter for screening, unspecified Medications: New bethanechol chloride 50 mg PO BID 90 days 180 tabs 1RF N40.1 - Benign prostatic hyperplasia with lower urinary tract symptoms, R39.11 - Hesitancy of micturition Coding CPT Codes Post Residual Void - PVR CPT Code: 25513-Wavu Void Residual by ultrasound ([id number])
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
--- OUTSIDE RECORDS SUMMARY | 2025-02-05 13:30 | XMS_ITS | Patient Health Record ---
Author Organization [facility] Address [address] [place] [address] Care Team Providers Care Silo Filler Name Role Phone Easton Chirinos MD Primary Care Provider UnavailMarcos Leal Unavailable [phone] Allergies Allergen (clinical drug ingredient) Drug/Non Drug Allergy documented on EMR Reaction Allergy Type Onset Date Status ciprofloxacin Cipro hives Drug Allergy Act margarita levofloxacin Levofloxacin hives Drug Allergy A ctive Reason For Referral No Information Medications Medication SIG (Take, Route, Frequency, Duration) Notes Start Date End Date Status hydroCHLOROthiazide Active Extra-Depth Diabetic Shoes w ith 3 Pair Custom heat-molded multi-density innersoles Act margarita Aspirin Active Finasteride Active Extra-Depth Diabetic Shoes w ith 3 Pair Custom heat-molded multi-density innersoles . 1pair shoes/3sets inserts . .; Duration: 1 year 01/17/2013 Active Tamsulosin HCl Activ e Pravastatin Sodium A ctive metFORMIN HCl Active NovoLOG Active Insulin Active Lisinopril Active Problems Problem Type SNOMED Code ICD Code Onset Dates Problem Status W/U Status Risk Notes Problem Bursitis (82537791) Bursitis (727.3) Active confirmed Problem Type I diabetes mellitus without complication (435979165) Diabetic - IDDM (250.01) Active confirmed Problem Hammer toe (741783878) Hammer toe (735.4) Active confirmed Problem Myositis (59941535) Myositis (729.1) Active confirmed Problem Pain in limb (06876758) Pain in Limb (729.5) Active confirmed Problem Plantar fasciitis (768949179) Plantar Fasciitis (728.71) Active confirmed Plan Of Treatment No Information Insurance Providers Payer Name Payer Address Payer Phone Subscriber Number Group Number Insured Name Patient Relationship to Insured Coverage Start Date Coverage End Date [facility] [address] [place] [address] [id number] Lev Casey Self - patient is the insured Medical (General) History Medical History History ICD Code asthma type II diabetes high blood pressure measles mumps chicken pox cholesterol Surgical History Surgery Date(Month/Year) tonsillectomy right forearm surgery 1961
== END 2025-02-05 11:25 | disposition home or self-care (01) ==
LOC: HO.HUSH 10:45
PROVIDERS: PCP General Practice; Visit Provider Urology
DX: Z13.9 Encounter for screening, unspecified (principal)

== ENCOUNTER → 2025-02-05 | Outpatient (BNVA) | payer OTHER, SELFPAY | PROVIDERS: PCP General Practice; Visit Provider Urology | DX: N40.0 Benign prostatic hyperplasia without lower urinary tract symptoms (principal); R35.1 Nocturia; E11.69 Type 2 diabetes mellitus with other specified complication; N52.1 Erectile dysfunction due to diseases classified elsewhere; R39.11 Hesitancy of micturition; Z13.9 Encounter for screening, unspecified | CPT/HCPCS: 51798; 81003 ==